=== PATIENT | male | born 1955 | race Caucasian/White ===

== ENCOUNTER 2024-01-31 20:00 | Observation (INO) | payer MEDICARE ==
[2024-01-31 21:05] VITALS: BMI 25.9
[2024-02-01 04:54] LABS: #Basophils 0.09 10x3/uL (0.0-0.2); #Eosinphils 0.27 10x3/uL (0.0-0.5); #Monocytes 0.94 10x3/uL (0.0-1.1); #Neutrophils 7.58 10x3/uL (1.5-8.4); %Basophils 0.9 % (0.0-2.0); %Eosinophils 2.7 % (0.0-6.0); %Lymphocytes 11.5 % (18.0-47.0); %Monocytes 9.3 % (0.0-10.0); %Neutrophils 75.3 % (40.0-75.0); Hematocrit 40.7 % (38.8-50.0); Hemoglobin 13.7 g/dL (13.5-17.5); Mean Corpuscular HGB CONC 33.7 g/dL (32.0-36.0); Mean Corpuscular Hemoglobin 31.1 pg (27.0-33.0); Mean Corpuscular Volume 92.3 fl (81.2-95.1); Mean Platelet Volume 11.4 fl (7.4-10.4); Platelet Count 357 10x3/uL (150-450); RBC Distribution Width 12.9 % (11.5-14.5); Red Blood Cell (RBC) Count 4.41 10x6/uL (4.32-5.72); White Blood Cell (WBC) Count 10.1 10x3/uL (3.5-10.5)
[2024-02-01] MEDS: Aspirin/APAP/Caffeine Tab (Excedrin Migraine) PO SCH (05:02)
[2024-02-01 05:11] LABS: Anion Gap 14 mmol/L (10-20); BUN (Urea Nitrogen) 12 mg/dL (8.4-25.7); Calc. Creatinine Clearance 96 mL/min (70-130); Calcium 9.5 mg/dL (7.8-10.44); Carbon Dioxide 25 mmol/L (23-31); Cardiac Risk 3.2 (Less than 4.5); Chloride 106 mmol/L (98-107); Cholesterol 105 mg/dl (< 200 Desired); Estimated GFR 95; Glucose 102 mg/dL (80-115); HDL Cholesterol 33 mg/dL (>60 Neg Risk); LDL Cholesterol, Calculated 59 mg/dL; Magnesium 1.8 mg/dL (1.6-2.6); Potassium 3.9 mmol/L (3.5-5.1); Sodium 141 mmol/L (136-145); Triglycerides 64 mg/dL (Less than 150)
[2024-02-01] MEDS: Aspirin 81 mg Enteric Coated Tablet PO SCH (08:34)
[2024-02-01] MEDS: Enoxaparin 40 MG (0.4 mL) SYRINGE SC SCH (08:34)
[2024-02-01] MEDS: Lisinopril 20 MG TAB PO SCH (08:34)
[2024-02-01] MEDS: Empagliflozin 25 MG TAB PO SCH (08:34)
[2024-02-01] MEDS ORDERED: Glucagon 1 MG/ML KIT IM PRN (13:40)
[2024-02-01] MEDS ORDERED: Dextrose 50% Abboject 50 ML SYRINGE SLOW IVP PRN (13:40)
[2024-02-01] MEDS ORDERED: Dextrose 5% in Water 1,000 ML IV PRN (13:40)
[2024-02-01 16:38] LABS: Hemoglobin A1c 6.1 % (4.0-6.0)
[2024-02-01] MEDS: Acetaminophen 325 MG TAB PO PRN (16:44)
[2024-02-01] MEDS: HumaLOG 300 UNITS/3 ML VIAL SC PRN (16:44)
[2024-02-01] MEDS: Atorvastatin Calcium 40 MG TAB PO SCH (21:13)
[2024-02-01] MEDS: Donepezil HCl 5 MG TAB PO SCH (21:13)
[2024-02-02 05:35] LABS: #Eosinphils 0.33 10x3/uL (0.0-0.5); #Monocytes 1.03 10x3/uL (0.0-1.1); #Neutrophils 7.01 10x3/uL (1.5-8.4); %Eosinophils 3.3 % (0.0-6.0); %Lymphocytes 15.3 % (18.0-47.0); %Monocytes 10.3 % (0.0-10.0); %Neutrophils 69.8 % (40.0-75.0); Hemoglobin 14.7 g/dL (13.5-17.5); Mean Corpuscular HGB CONC 32.7 g/dL (32.0-36.0); Mean Corpuscular Hemoglobin 30.4 pg (27.0-33.0); Mean Platelet Volume 11.2 fl (7.4-10.4); Platelet Count 426 10x3/uL (150-450); RBC Distribution Width 12.9 % (11.5-14.5); Red Blood Cell (RBC) Count 4.84 10x6/uL (4.32-5.72)
[2024-02-02 05:49] LABS: Anion Gap 13 mmol/L (10-20); BUN (Urea Nitrogen) 13 mg/dL (8.4-25.7); Calc. Creatinine Clearance 88 mL/min (70-130); Calcium 9.9 mg/dL (7.8-10.44); Carbon Dioxide 27 mmol/L (23-31); Chloride 104 mmol/L (98-107); Estimated GFR 92; Glucose 123 mg/dL (80-115); Potassium 3.9 mmol/L (3.5-5.1); Sodium 140 mmol/L (136-145)
[2024-02-02 09:20] VITALS: TEMP 98.2
[2024-02-02 11:42] VITALS: BP 115/72
== END 2024-02-02 10:12 | disposition home or self-care (01) ==
LOC: CSHTELE 20:00 → INTOOBSV 20:00
PROVIDERS: ADMIT Internal Medicine; ATTEND Internal Medicine
PROC: B246ZZZ Ultrasonography of Right and Left Heart (ICD-10-PCS; principal; 2024-02-01)
DX: R41.0 Disorientation, unspecified (principal); R42 Dizziness and giddiness; I10 Essential (primary) hypertension; R53.1 Weakness; E11.9 Type 2 diabetes mellitus without complications; E78.5 Hyperlipidemia, unspecified; Z88.8 Allergy status to other drugs, medicaments and biological substances; Z79.84 Long term (current) use of oral hypoglycemic drugs; Z79.899 Other long term (current) drug therapy; Z86.73 Personal history of transient ischemic attack (TIA), and cerebral infarction without residual deficits; Z96.653 Presence of artificial knee joint, bilateral
CPT/HCPCS: 36415; 36416; 70551; 80048; 80061; 82384; 83036; 83735; 83835; 84439; 84443; 85025; 93306; J1650